=== PATIENT | male | born 1960 | race Caucasian/White ===

== ENCOUNTER 2024-07-12 18:45 | Emergency (ER) | payer OTHER, MEDICARE ==
[2024-07-12 19:13] LABS: Absolute Basophils 0.1 K/uL (0-0.5); Absolute Eosinophils 0.2 K/uL (0-0.5); Absolute Lymphocytes (CBC) 1.3 K/uL (0.7-4.9); Absolute Monocytes 0.8 K/uL (0.1-1.3); Basophils % 0.9 % (0-1.3); Eosinophils % 2.5 % (0-4.4); Hematocrit 42.5 % (39.6-49.0); Hemoglobin 14.4 g/dL (13.6-17.9); Lymphocytes % 20.1 % (15.3-44.8); MCH 32.5 pg (27.0-35.0); MCHC 33.9 g/dL (32.0-36.0); MCV 95.8 fL (80-100); MPV 9.7 fL (7.6-11.3); Monocytes % 12.4 % (3.3-12.3); Neutrophils % 64.1 % (41.7-73.7); Nucleated Red Blood Cells % 0.1 % (0-0); Platelets 183 thou/uL (152-406); RBC Red Blood Cell Count 4.44 M/uL (4.33-5.43); Red Cell Distribution Width 15.4 % (12.1-15.2)
[2024-07-12 19:16] LABS: PT Prothrombin Time 14.7 SECONDS (9.4-12.5); Protime INR 1.32
[2024-07-12] MEDS ORDERED: ASPIRIN 81 MG CHEWABLE TABLET ONE (19:18)
[2024-07-12 19:32] LABS: Anion Gap 8.9 mEq/L (5.0-15.0); Magnesium 2.1 mg/dL (1.6-2.4); Potassium 3.9 mEq/L (3.5-5.1)
--- NOTE | 2024-07-12 20:12 | RAD REPORT ---
EXAMINATION: ONE VIEW CHEST XR CLINICAL INDICATION: CHEST PAIN TECHNIQUE: Frontal chest projection is submitted. Examination is limited by patient positioning and t echnique. COMPARISON: 06/30/2023 FINDINGS: The lungs are well inflated and clear. The heart is upper limit of normal in size. No displaced fract ures identified. IMPRESSION: No acute intrathoracic abnormalities.
--- NOTE | 2024-07-12 22:27 | ER ---
Nurse's Notes [facility] Name: Eris Shields Age: 64 yrs Sex: Male : 1960 Arrival Date: 07/12/2024 Time: 18:45 Bed 3 Private MD: Diagnosis: Chest pain, unspecified Presentation: 07/12 18:52 Chief complaint: Patient states: Chest pains that started mid-day today, failed stress rs5 test on 07/05/24, [place] is cardiologists. Is supposed to have a heart cath, hasn't been scheduled. Cough x1 week. Coronavirus screen: At this time, the client does not indicate any symptoms associated with coronavirus-19. Ebola Screen: No symptoms or risks identified at this time. Initial Sepsis Screen: Does the patient meet any 2 criteria? No. Patient's initial sepsis screen is negative. Does the patient have a suspected source of infection? No. Patient's initial sepsis screen is negative. Risk Assessment: Do you want to hurt yourself or someone else? Patient reports no desire to harm self or others. Onset of symptoms was July 12, 2024. 18:52 Method Of Arrival: Ambulatory rs5 18:52 Acuity: TRISTIN 2 rs5 Historical: - Allergies: 18:56 No Known Allergies; rs5 - PMHx: 18:56 Hypertensive disorder; aortic aneurisym; rs5 - PSHx: 18:58 "aortic and bicuspid valve issues"; rs5 - Immunization history:: Adult Immunizations up to date. - Infectious Disease History:: Denies. - Social history:: Smoking status: Patient denies any tobacco usage or history of. Screenin:25 [facility] ED Fall Risk Assessment (Adult) History of falling in the last 3 months, jj7 including since admission No falls in past 3 months (0 pts) Confusion or Disorientation No (0 pts) Intoxicated or Sedated No (0 pts) Impaired Gait No (0 pts) Mobility Assist Device Used No (0 pt) Altered Elimination No (0 pt) Score/Fall Risk Level 0 - 2 = Low Risk Oriented to surroundings, Maintained a safe environment, Educated pt \\T\\ family on fall prevention, incl call for assistance when getting out of bed, Assessed \\T\\ reinforced patient's understanding of fall precautions. Abuse screen: Denies threats or abuse. Nutritional screening: No deficits noted. Tuberculosis screening: No symptoms or risk factors identified. Assessment: 19:02 General: Appears. tm6 19:24 Reassessment: ASSUMED CARE OF PT. PT LYING IN BED. NO DISTRESS NOTED. STATES NO PAIN jj7 JUST PRESSURE ON HIS CHEST. VS STABLE. FAMILY AT BEDSIDE. CALL WALKER IN REACH. NO NEEDS AT THIS TIME. 23:00 General: Appears in no apparent distress. comfortable, Behavior is calm, cooperative. al5 Pain: Denies pain. Neuro: Level of Consciousness is awake, alert, obeys commands, Oriented to person, place, time, situation. Cardiovascular: Capillary refill < 3 seconds Patient's skin is warm and dry. Respiratory: Airway is patent Respiratory effort is even, unlabored, Respiratory pattern is regular, symmetrical. GI: No signs and/or symptoms were reported involving the gastrointestinal system. : No signs and/or symptoms were reported regarding the genitourinary system. EENT: No signs and/or symptoms were reported regarding the EENT system. Derm: Skin is intact, is healthy with good turgor, Skin is pink, warm \\T\\ dry. normal. Musculoskeletal: No signs and/or symptoms reported regarding the musculoskeletal system. Vital Signs: 18:52 BP 139 / 86; Pulse 54; Resp 17; Temp 98(O); Pulse Ox 99% ; Weight 103.42 kg; rs5 20:00 BP 111 / 83; Pulse 66; Resp 17; Pulse Ox 100% ; jj7 20:30 BP 110 / 73; Pulse 58; Resp 16; Pulse Ox 100% on R/A; al5 21:00 BP 109 / 75; Pulse 62; Resp 17; Pulse Ox 100% on R/A; al5 21:30 BP 107 / 79; Pulse 63; Resp 14; Pulse Ox 100% on R/A; al5 22:00 BP 106 / 80; Pulse 61; Resp 16; Pulse Ox 99% on R/A; al5 22:30 BP 107 / 80; Pulse 59; Resp 14; Pulse Ox 98% on R/A; al5 23:00 BP 109 / 78; Pulse 62; Resp 16; Pulse Ox 98% on R/A; al5 ED Course: 18:46 Patient arrived in ED. mr 18:53 EKG done, by ED staff. tm6 18:56 Triage completed. rs5 19:00 [facility]C [facility]. kb 19:00 Alok Ramos MD is Attending Physician. kb 19:01 Inserted saline lock: 20 gauge in right antecubital area, using aseptic technique. tm6 Blood collected. Flushed with 10 mL NS. Patient maintains SpO2 saturation greater than 95% on room air. 19:10 Basic Metabolic Panel Sent. tm6 19:10 CBC with Diff Sent. tm6 19:10 Magnesium Sent. tm6 19:10 NT PRO-BNP Sent. tm6 19:10 PT-INR Sent. tm6 19:10 Troponin HS Sent. tm6 19:11 Vivek Arango, RN is Primary Nurse. jj7 19:25 Patient has correct armband on for positive identification. Placed in gown. Bed in low jj7 position. Call light in reach. Side rails up X2. Adult w/ patient. Provided Education on: USE OF CALL WALKER. Client placed on continuous cardiac and pulse oximetry monitoring. NIBP monitoring applied. finance vice president on. Pulse ox on. Warm blanket given. 20:05 XRAY Chest (1 view) In Process Unspecified. EDMS 22:03 Troponin High Sensitivity Sent. oe 23:23 No provider procedures requiring assistance completed. IV discontinued, intact, al5 bleeding controlled, No redness/swelling at site. Pressure dressing applied. Administered Medications: 19:20 Drug: Aspirin PO Chewable Tablet 324 mg PO once; 81 mg tablets x 4 Route: PO; jj7 23:24 Follow up: Response: No adverse reaction al5 Medication: 23:24 VIS not applicable for this client. al5 Outcome: 22:26 Discharge ordered by . kb 23:24 Discharged to home ambulatory, with significant other, al5 23:24 Condition: good 23:24 Discharge instructions given to patient, significant other, Instructed on discharge instructions, follow up and referral plans. Demonstrated understanding of instructions, follow-up care, 23:24 Patient left the ED. al5 Signatures: Dispatcher [employer] EDMS Mela Mann FNP-C AUTOMATIC DRY STARCH OPERATOR-Ckb Macario, Alissa, Reg Reg mr Alea, Wood oe Vivek Arango RN RN jj7 Jimmy Faith RN RN rs5 Lino Vance RN RN tm6 Ibis Leggett RN RN al5 Corrections: (The following items were deleted from the chart) 18:56 PSHx: aortic valv replacement; rs5 rs5 58 18:56 PSHx: bicuspid valve replacement; rs5 rs5
--- NOTE | 2024-07-12 22:27 | EDPHYS ---
Physician Documentation [facility] Name: Eris Shields Age: 64 yrs Sex: Male : 1960 Arrival Date: 07/12/2024 Time: 18:45 Bed 3 Private MD: ED Physician Alok Ramos HPI: 07/12 22:59 This 64 yrs old Male presents to ER via Ambulatory with complaints of Chest Pain. kb 22:59 Patient is a 64-year-old male who presents for right chest pain that started this kb morning and radiated to the middle of his chest about 1 hour prior to arrival. Denies shortness of breath, nausea, vomiting, dizziness. States he decided to come in because he failed his stress test in mid June. States he was seen by Dr. Sparrow last week and they are planning to schedule a heart cath outpatient.. Historical: - Allergies: 18:56 No Known Allergies; rs5 - PMHx: 18:56 Hypertensive disorder; aortic aneurisym; rs5 - PSHx: 18:58 "aortic and bicuspid valve issues"; rs5 - Immunization history:: Adult Immunizations up to date. - Infectious Disease History:: Denies. - Social history:: Smoking status: Patient denies any tobacco usage or history of. ROS: 19:21 Constitutional: As per HPI kb Exam: 19:21 Constitutional: This is a well developed, well nourished patient who is awake, alert, kb and in no acute distress. Head/Face: Normocephalic, atraumatic. ENT: Moist Mucous membranes Cardiovascular: Regular rate Respiratory: Respirations even and unlabored. No increased work of breathing. Talking in full sentences Abdomen/GI: Soft, non-tender. No distention Skin: Warm, dry with normal turgor. Normal color. MS/ Extremity: Pulses equal, no cyanosis. Neurovascular intact. Full, normal range of motion. Neuro: Awake and alert, GCS 15, oriented to person, place, time, and situation. 19:21 ECG was reviewed by the Attending Physician. Vital Signs: 18:52 BP 139 / 86; Pulse 54; Resp 17; Temp 98(O); Pulse Ox 99% ; Weight 103.42 kg; rs5 20:00 BP 111 / 83; Pulse 66; Resp 17; Pulse Ox 100% ; jj7 20:30 BP 110 / 73; Pulse 58; Resp 16; Pulse Ox 100% on R/A; al5 21:00 BP 109 / 75; Pulse 62; Resp 17; Pulse Ox 100% on R/A; al5 21:30 BP 107 / 79; Pulse 63; Resp 14; Pulse Ox 100% on R/A; al5 22:00 BP 106 / 80; Pulse 61; Resp 16; Pulse Ox 99% on R/A; al5 22:30 BP 107 / 80; Pulse 59; Resp 14; Pulse Ox 98% on R/A; al5 23:00 BP 109 / 78; Pulse 62; Resp 16; Pulse Ox 98% on R/A; al5 MDM: 19:00 Medical Screening Exam initiated kb 22:57 Differential diagnosis: Acute WI, arrhythmia, pleurisy. Data reviewed: Data reviewed: vital signs, nurses notes. Consideration of Admission/Observation Escalation of care including admission/observation considered. Admission considered but patient prefers to go home and follow-up with Dr. Sparrow tomorrow. Management of patient was discussed with the following: Certified Hearing Instrument Dispenser: Dr. Walker consulted. Recommends repeat troponin, if negative allow patient to choose admission versus outpatient follow-up.. Historians other than the Patient: Spouse/Significant Other: . Care significantly affected by the following chronic conditions: Hypertension. Counseling: I had a detailed discussion with the patient and/or guardian regarding the historical points, exam findings, and any diagnostic results supporting the discharge/admit diagnosis, lab results, radiology results, the need for outpatient follow up, a patient financial services coordinator, to return to the emergency department if symptoms worsen or persist or if there are any questions or concerns that arise at home. ED course: Patient elected to have repeat troponin and be discharged home. Patient states he will call Dr. Sparrow's office in the morning to schedule his heart cath. Prefers not to be admitted at this time. Educated on return precautions.. 07/12 19:05 Order name: Basic Metabolic Panel; Complete Time: 19:33 kb 07/12 19:05 Order name: CBC with Diff; Complete Time: 19:17 kb 07/12 19:05 Order name: Magnesium; Complete Time: 19:33 kb 07/12 19:05 Order name: NT PRO-BNP; Complete Time: 19:33 kb 07/12 19:05 Order name: PT-INR; Complete Time: 19:17 kb 07/12 19:05 Order name: Troponin HS; Complete Time: 19:33 kb 07/12 21:51 Order name: Troponin High Sensitivity; Complete Time: 22:25 tm6 07/12 19:05 Order name: XRAY Chest (1 view); Complete Time: 20:14 kb 07/12 19:05 Order name: Cardiac monitoring; Complete Time: 19:05 kb 07/12 19:05 Order name: EKG - Nurse/Tech; Complete Time: 19:05 kb 07/12 19:05 Order name: IV Saline Lock; Complete Time: 19:05 kb 07/12 19:05 Order name: Labs collected and sent; Complete Time: 19:10 kb 07/12 19:05 Order name: O2 Per Protocol; Complete Time: 19:05 kb 07/12 19:05 Order name: O2 Sat Monitoring; Complete Time: 19:05 kb 07/12 20:51 Order name: Misc. Order: Repeat troponin \\T\\ 2200; Complete Time: 22:03 vc1 EC:21 Rate is 60 beats/min. Rhythm is regular. QRS [place] is Normal. PA interval is normal at kb 156 msec. QRS interval is normal at 108 msec. QT interval is normal at 420 msec. Administered Medications: 19:20 Drug: Aspirin PO Chewable Tablet 324 mg PO once; 81 mg tablets x 4 Route: PO; jj7 23:24 Follow up: Response: No adverse reaction al5 Disposition Summary: 07/12/24 22:26 Discharge Ordered Notes: Location: Home kb Condition: Stable kb Diagnosis - Chest pain, unspecified kb Followup: kb - With: Emergency Department - When: As needed - Reason: Worsening of condition Followup: kb - With: Private Physician - When: 2 - 3 days - Reason: Recheck today's complaints, Continuance of care, Re-evaluation by your physician Discharge Instructions: - Discharge Summary Sheet kb - Nonspecific Chest Pain, Adult, [id number] kb Forms: - Medication Reconciliation Form kb - Antibiotic Education kb - Prescription Opioid Use kb - Patient Portal Instructions kb - Leadership Thank You Letter kb Signatures: Dispatcher [employer] EDMela Foster FNP-C FNP-Ckb Calcote, Vanessa RN RN vc1 Vivek Arango RN RN jj7 Jimmy Faith RN RN rs5 Ibis Leggett RN al5 Corrections: (The following items were deleted from the chart) 18:58 18:56 PSHx: aortic valv replacement; rs5 rs5 18:58 18:56 PSHx: bicuspid valve replacement; rs5 rs5 19:05 19:05 BASIC METABOLIC PANEL+C.LAB.BRZ ordered. EDMS EDMS 19:05 19:05 CBC+H.LAB.BRZ ordered. EDMS EDMS 19:05 19:05 MAGNESIUM+C.LAB.BRZ ordered. EDMS EDMS 19:05 19:05 PROBNP+C.LAB.BRZ ordered. EDMS EDMS 19:05 19:05 PROTIME (+INR)+COAG.LAB.BRZ ordered. EDMS EDMS 19:05 19:05 Troponin High Sensitivity+C.LAB.BRZ ordered. EDMS EDMS 19:05 19:05 Chest Single View+RAD.RAD.BRZ ordered. EDMS EDMS
[2024-07-13 00:25] VITALS: TEMP 98
[2024-07-13 00:37] VITALS: O2SAT 98
[2024-07-13 00:38] VITALS: BP 109/78
--- NOTE | 2024-07-14 12:45 | EKG ---
Test Date: 2024-07-12 Test Time: 18:51:32 Purchase Request Editor: [place] MEASUREMENT RESULTS: Intervals: Rate: 60 CA: 156 QRSD: 108 QT: 420 QTc: 420 Advance: P: 32 CA: 156 QRS: -28 T: 19 INTERPRETIVE STATEMENTS: Normal sinus rhythm Normal ECG Compared to ECG 11/18/1993 10:42:00 Sinus bradycardia no longer present Electronically Signed On 07-14-24 12:41:32 MANUFACTURING TEAM MEMBER by Toni Mackay
== END 2024-07-12 23:24 | disposition home or self-care (01) ==
LOC: ER 18:45
DX: R07.9 Chest pain, unspecified (principal); I10 Essential (primary) hypertension
CPT/HCPCS: 36415; 71045; 80048; 83735; 83880; 84484; 85025; 85610; 93005; 99285

== ENCOUNTER 2024-07-20 11:20 | Day surgery (SDC) | payer OTHER, MEDICARE ==
--- NOTE | 2024-07-14 12:37 | EKG ---
Test Date: 2024-07-14 Test Time: 11:20:40 Drill Press Operator Numerical Control: VIPIN MEASUREMENT RESULTS: Intervals: Rate: 62 NH: 152 QRSD: 108 QT: 422 QTc: 428 [place]: P: 22 NH: 152 QRS: -34 T: 9 INTERPRETIVE STATEMENTS: Normal sinus rhythm Left axis deviation Pulmonary disease pattern Incomplete right bundle branch block Abnormal ECG Compared to ECG 07/12/2024 18:51:32 Left-axis deviation now present Incomplete right bundle-branch block now present Electronically Signed On 07-14-24 12:36:27 LUMBER CHAIN OFFBEARER by Toni Mackay
[2024-07-20] MEDS ORDERED: NA CHLORIDE 0.9% 500 ML ONE (11:22)
[2024-07-20] MEDS ORDERED: HEPARIN 10,000 UNIT/10 ML VIAL IV ONE (14:23)
[2024-07-20] MEDS ORDERED: CLOPIDOGREL 75 MG TABLET ONE (14:23)
[2024-07-20] MEDS ORDERED: TICAGRELOR 90 MG TABLET PO ONE (14:24)
[2024-07-20] MEDS ORDERED: ASPIRIN 325 MG TAB ONE (14:24)
[2024-07-20] MEDS ORDERED: ATROPINE SULF 1 MG/10 ML SYR IV ONE (14:25)
[2024-07-20] MEDS ORDERED: LIDOCAINE 1% 20 ML MDV ONE (14:48)
[2024-07-20] MEDS ORDERED: HEPARIN 5000 UNIT/ML 1 ML VIAL ONE (14:48)
[2024-07-20] MEDS ORDERED: MIDAZOLAM HCL 2 MG/2 ML INJ ONE (14:48)
[2024-07-20] MEDS ORDERED: VERAPAMIL HCL 10 MG/4 ML VIAL IV ONE (14:48)
[2024-07-20] MEDS ORDERED: FENTANYL CITR 100 MCG/2 ML ONE (14:49)
[2024-07-20 17:36] VITALS: BP 112/76; O2SAT 98
== END 2024-07-20 17:45 | disposition home or self-care (01) ==
LOC: CCL 11:20
PROVIDERS: ATTEND Internal Medicine
DX: I25.110 Atherosclerotic heart disease of native coronary artery with unstable angina pectoris (principal); I35.0 Nonrheumatic aortic (valve) stenosis; I71.21 Aneurysm of the ascending aorta, without rupture; Q23.81 Bicuspid aortic valve; I10 Essential (primary) hypertension; I45.10 Unspecified right bundle-branch block; E78.2 Mixed hyperlipidemia; Z79.85 Long-term (current) use of injectable non-insulin antidiabetic drugs; Z79.899 Other long term (current) drug therapy; Z82.49 Family history of ischemic heart disease and other diseases of the circulatory system
CPT/HCPCS: 36415; 76937; 85730; 93005; 93458; 99152; 99153; C1893; J0461; J1644; J2003; J2250; J3010; J7040; Q9966